=== PATIENT | male | born 1950 | race Caucasian/White ===

== ENCOUNTER 2023-07-30 14:04 | Outpatient (NON) | payer MEDICARE, SELFPAY ==
[2023-07-30 14:23] LABS: Basophils Absolute Auto 0.03 K/mm3 (0.00-0.10); Basophils Percent Auto 0.5 % (0.0-1.0); Eosinophils Absolute Auto 0.16 K/mm3 (0.02-0.50); Eosinophils Percent Auto 2.6 % (1.0-6.0); Hemoglobin 14.9 g/dL (12.4-15.3); Immature Granulocyte Absolute 0.06 K/mm3 (0.00-0.00); Lymphocytes Absolute Auto 1.41 K/mm3 (1.10-4.50); Mean Corpuscular HGB Conc 35.5 g/dL (32-36); Mean Corpuscular Hemoglobin 34.3 pg (27.0-31.0); Mean Corpuscular Volume 96.8 fL (78.0-102.0); Mean Platelet Volume 10.2 fl (8.7-11.0); Monocytes Percent Auto 8.1 % (2.0-11.0); Neutrophils Absolute Auto 3.98 K/mm3 (1.70-7.20); Neutrophils Percent Auto 64.8 % (50.0-70.0); Platelet Count Result 210 K/mm3 (150-420); Red Blood Count 4.34 M/mm3 (4.70-6.10); Red Cell Distribution Width 12.3 % (11.6-14.4); White Blood Count 6.1 K/mm3 (4.8-10.8)
[2023-07-30 14:37] LABS: Alanine Aminotransferase 33 U/L (16-63); Albumin Level 3.6 g/dL (3.4-5.0); Alkaline Phosphatase 87 U/L (46-116); Anion Gap 13 mmol/L (4-12); Aspartate Amino Transferase 22 U/L (15-37); Bilirubin,Total 0.9 mg/dL (0.00-1.00); Blood Urea Nitrogen 16 mg/dL (7-18); Calcium 8.9 mg/dL (8.5-10.1); Carbon Dioxide 25 mmol/L (21-32); Chloride 102 mmol/L (98-108); Estimated Glomerular Filt Rate > 60; Glucose 140 mg/dL (70-99); Osmolality Calculated 293 mOsm/kg (285-295); Potassium 3.3 mmol/L (3.5-5.1); Sodium 140 mmol/L (136-145); Total Protein 6.9 g/dL (6.4-8.2)
[2023-07-30 14:40] LABS: CRP < 0.5 mg/dL (0.0-0.9)
[2023-07-30 15:27] LABS: Erythrocyte Sedimentation Rate 17 mm/hr (0-20)
== END 2023-07-30 14:05 | disposition home or self-care (01) ==
LOC: CHSLAB 14:07
PROVIDERS: PCP Internal Medicine Infectious Disease; Visit Provider Internal Medicine Infectious Disease
DX: T84.62 Infection and inflammatory reaction due to internal fixation device of leg (principal); B95.61 Methicillin susceptible Staphylococcus aureus infection as the cause of diseases classified elsewhere
CPT/HCPCS: 36415; 80053; 85025; 85652; 86140

== ENCOUNTER 2023-08-06 10:31 | Outpatient (NON) | payer MEDICARE, SELFPAY ==
[2023-08-06 10:52] LABS: Basophils Absolute Auto 0.05 K/mm3 (0.00-0.10); Basophils Percent Auto 0.9 % (0.0-1.0); Eosinophils Percent Auto 3.4 % (1.0-6.0); Hematocrit 43.4 % (37.0-46.0); Hemoglobin 15.6 g/dL (12.4-15.3); Immature Granulocyte Absolute 0.04 K/mm3 (0.00-0.00); Immature Granulocyte Percent A 0.7 % (0.0-0.0); Lymphocytes Absolute Auto 1.45 K/mm3 (1.10-4.50); Lymphocytes Percent Auto 24.8 % (18.0-42.0); Mean Corpuscular HGB Conc 35.9 g/dL (32-36); Mean Corpuscular Hemoglobin 34.5 pg (27.0-31.0); Mean Platelet Volume 10.1 fl (8.7-11.0); Monocytes Absolute Auto 0.51 K/mm3 (0.10-0.90); Monocytes Percent Auto 8.7 % (2.0-11.0); Neutrophils Absolute Auto 3.59 K/mm3 (1.70-7.20); Neutrophils Percent Auto 61.5 % (50.0-70.0); Platelet Count Result 194 K/mm3 (150-420); Red Blood Count 4.52 M/mm3 (4.70-6.10); Red Cell Distribution Width 12.5 % (11.6-14.4); White Blood Count 5.8 K/mm3 (4.8-10.8)
[2023-08-06 11:14] LABS: Alanine Aminotransferase 38 U/L (16-63); Albumin Level 3.7 g/dL (3.4-5.0); Alkaline Phosphatase 74 U/L (46-116); Anion Gap 15 mmol/L (4-12); Aspartate Amino Transferase 26 U/L (15-37); Bilirubin,Total 0.7 mg/dL (0.00-1.00); Blood Urea Nitrogen 12 mg/dL (7-18); Calcium 8.9 mg/dL (8.5-10.1); Carbon Dioxide 23 mmol/L (21-32); Chloride 101 mmol/L (98-108); Estimated Glomerular Filt Rate > 60; Glucose 115 mg/dL (70-99); Osmolality Calculated 288 mOsm/kg (285-295); Potassium 3.9 mmol/L (3.5-5.1); Sodium 139 mmol/L (136-145); Total Protein 7.1 g/dL (6.4-8.2)
[2023-08-06 11:16] LABS: CRP < 0.5 mg/dL (0.0-0.9)
[2023-08-06 11:32] LABS: Erythrocyte Sedimentation Rate 12 mm/hr (0-20)
== END 2023-08-06 10:32 | disposition home or self-care (01) ==
LOC: CHSLAB 10:37
PROVIDERS: Visit Provider Internal Medicine Infectious Disease
DX: T84.69XA Infection and inflammatory reaction due to internal fixation device of other site, initial encounter (principal)
CPT/HCPCS: 36415; 80053; 85025; 85652; 86140

== ENCOUNTER 2023-09-24 10:43 | Outpatient (CLI) | payer MEDICARE, SELFPAY ==
[2023-09-25 18:17] LABS: Alanine Aminotransferase 55 U/L (16-63); Albumin Level 4.1 g/dL (3.4-5.0); Alkaline Phosphatase 81 U/L (46-116); Aspartate Amino Transferase 31 U/L (15-37); Bilirubin,Total 1.2 mg/dL (0.00-1.00); Blood Urea Nitrogen 21 mg/dL (7-18); Calcium 9.3 mg/dL (8.5-10.1); Chloride 103 mmol/L (98-108); Estimated Glomerular Filt Rate > 60; Glucose 125 mg/dL (70-99); Osmolality Calculated 294 mOsm/kg (285-295); Potassium 4.3 mmol/L (3.5-5.1); Sodium 140 mmol/L (136-145); Total Protein 7.1 g/dL (6.4-8.2)
[2023-09-25 19:06] LABS: Anion Gap 15 mmol/L (4-12); Carbon Dioxide 22 mmol/L (21-32)
== END 2023-09-24 10:44 | disposition home or self-care (01) ==
LOC: CHSLAB 10:49
PROVIDERS: Visit Provider Internal Medicine Infectious Disease
DX: A49.01 Methicillin susceptible Staphylococcus aureus infection, unspecified site (principal)
CPT/HCPCS: 36415; 80053

== ENCOUNTER 2023-10-19 07:53 | Outpatient (CLI) | payer MEDICARE, BC, SELFPAY ==
[2023-10-19 08:20] LABS: Basophils Absolute Auto 0.05 K/mm3 (0.00-0.10); Basophils Percent Auto 0.8 % (0.0-1.0); Eosinophils Absolute Auto 0.16 K/mm3 (0.02-0.50); Eosinophils Percent Auto 2.4 % (1.0-6.0); Hematocrit 47.1 % (37.0-46.0); Hemoglobin 17.1 g/dL (12.4-15.3); Immature Granulocyte Absolute 0.07 K/mm3 (0.00-0.00); Immature Granulocyte Percent A 1.1 % (0.0-0.0); Lymphocytes Absolute Auto 1.99 K/mm3 (1.10-4.50); Lymphocytes Percent Auto 29.9 % (18.0-42.0); Mean Corpuscular HGB Conc 36.3 g/dL (32-36); Mean Corpuscular Hemoglobin 34.9 pg (27.0-31.0); Mean Corpuscular Volume 96.1 fL (78.0-102.0); Mean Platelet Volume 9.5 fl (8.7-11.0); Monocytes Absolute Auto 0.71 K/mm3 (0.10-0.90); Monocytes Percent Auto 10.7 % (2.0-11.0); Neutrophils Absolute Auto 3.67 K/mm3 (1.70-7.20); Neutrophils Percent Auto 55.1 % (50.0-70.0); Platelet Count Result 221 K/mm3 (150-420); Red Cell Distribution Width 11.7 % (11.6-14.4); White Blood Count 6.7 K/mm3 (4.8-10.8)
[2023-10-19 08:59] LABS: Alanine Aminotransferase 47 U/L (16-63); Albumin Level 4.2 g/dL (3.4-5.0); Alkaline Phosphatase 75 U/L (46-116); Anion Gap 12 mmol/L (4-12); Aspartate Amino Transferase 28 U/L (15-37); Bilirubin,Total 1.1 mg/dL (0.00-1.00); Blood Urea Nitrogen 15 mg/dL (7-18); Calcium 9.2 mg/dL (8.5-10.1); Carbon Dioxide 24 mmol/L (21-32); Chloride 102 mmol/L (98-108); Estimated Glomerular Filt Rate > 60; Glucose 101 mg/dL (70-99); Osmolality Calculated 286 mOsm/kg (285-295); Potassium 4.1 mmol/L (3.5-5.1); Sodium 138 mmol/L (136-145)
[2023-10-19 09:17] LABS: Erythrocyte Sedimentation Rate 2 mm/hr (0-20)
== END 2023-10-19 07:54 | disposition home or self-care (01) ==
PROVIDERS: Visit Provider Internal Medicine Infectious Disease
DX: A49.01 Methicillin susceptible Staphylococcus aureus infection, unspecified site (principal)
CPT/HCPCS: 36415; 80053; 85025; 85652

== ENCOUNTER 2023-11-20 12:56 | Outpatient (CLI) | payer MEDICARE, SELFPAY ==
[2023-11-20 13:12] LABS: Basophils Absolute Auto 0.04 K/mm3 (0.00-0.10); Basophils Percent Auto 0.6 % (0.0-1.0); Eosinophils Absolute Auto 0.14 K/mm3 (0.02-0.50); Eosinophils Percent Auto 2.2 % (1.0-6.0); Hematocrit 42.8 % (37.0-46.0); Hemoglobin 15.5 g/dL (12.4-15.3); Immature Granulocyte Absolute 0.04 K/mm3 (0.00-0.00); Immature Granulocyte Percent A 0.6 % (0.0-0.0); Lymphocytes Absolute Auto 1.85 K/mm3 (1.10-4.50); Mean Corpuscular HGB Conc 36.2 g/dL (32-36); Mean Corpuscular Hemoglobin 35.3 pg (27.0-31.0); Mean Corpuscular Volume 97.5 fL (78.0-102.0); Mean Platelet Volume 10.1 fl (8.7-11.0); Monocytes Absolute Auto 0.44 K/mm3 (0.10-0.90); Monocytes Percent Auto 6.9 % (2.0-11.0); Neutrophils Absolute Auto 3.86 K/mm3 (1.70-7.20); Neutrophils Percent Auto 60.7 % (50.0-70.0); Platelet Count Result 201 K/mm3 (150-420); Red Blood Count 4.39 M/mm3 (4.70-6.10); White Blood Count 6.4 K/mm3 (4.8-10.8)
[2023-11-20 14:11] LABS: Erythrocyte Sedimentation Rate 6 mm/hr (0-20)
== END 2023-11-20 12:57 | disposition home or self-care (01) ==
LOC: CHSLAB 13:01
PROVIDERS: Visit Provider Internal Medicine Infectious Disease
DX: A49.01 Methicillin susceptible Staphylococcus aureus infection, unspecified site (principal)
CPT/HCPCS: 36415; 85025; 85652

== ENCOUNTER 2025-01-23 08:06 | Outpatient (CLI) | payer MEDICARE, BC, SELFPAY ==
[2025-01-23 08:38] LABS: Hematocrit 48.7 % (37.0-46.0); Hemoglobin 17.0 g/dL (12.4-15.3); Mean Corpuscular HGB Conc 34.9 g/dL (32-36); Mean Corpuscular Hemoglobin 35.1 pg (27.0-31.0); Mean Corpuscular Volume 100.6 fL (78.0-102.0); Platelet Count Result 219 K/mm3 (150-420); Red Blood Count 4.84 M/mm3 (4.70-6.10); White Blood Count 6.2 K/mm3 (4.8-10.8)
[2025-01-23 08:53] LABS: Hemoglobin A1C 5.3 % (<5.7)
[2025-01-23 09:01] LABS: MALB Creatinine Ratio 5.0 mg/g (0-30)
[2025-01-23 09:08] LABS: Alanine Aminotransferase 43 U/L (6-50); Albumin Level 5.0 g/dL (3.5-5.1); Alkaline Phosphatase 73 U/L (38-126); Anion Gap 13 mmol/L (4-12); Aspartate Amino Transferase 38 U/L (17-59); Bilirubin,Total 1.1 mg/dL (0.2-1.3); Blood Urea Nitrogen 12 mg/dL (9-20); Calcium 10.1 mg/dL (8.4-10.2); Carbon Dioxide 26 mmol/L (22-30); Chloride 103 mmol/L (98-107); Cholesterol 132 mg/dL (0-200); Estimated Glomerular Filt Rate > 60; Glucose 117 mg/dL (65-110); HDL Direct 63 mg/dL; Osmolality Calculated 294 mOsm/kg (285-295); Potassium 4.8 mmol/L (3.4-5.0); Sodium 142 mmol/L (137-145); Total Protein 7.6 g/dL (6.3-8.2); Triglycerides 87 mg/dL (<150)
[2025-01-23 11:42] LABS: Prostate Specific Antigen 2.4 ng/mL (< OR = 4.0)
== END 2025-01-23 08:07 | disposition home or self-care (01) ==
LOC: CHSLAB 08:12
PROVIDERS: PCP Physician Assistant; Visit Provider Physician Assistant
DX: E11.9 Type 2 diabetes mellitus without complications (principal); Z12.5 Encounter for screening for malignant neoplasm of prostate
CPT/HCPCS: 36415; 80053; 80061; 82043; 83036; 84153; 85027; 86803; G0103